=== PATIENT | female | born 1985 | race African-American/Black ===

== ENCOUNTER 2023-02-23 09:06 | Emergency (ER) | payer BC, SELFPAY ==
--- NOTE | ~2023-02-23 | XR_ITS ---
EXAMINATION: XR thoracic spine 3V DATE: 02/23/2023 09:52 INDICATION: Thoracic back pain. TECHNIQUE: 3 views of thoracic spine were obtained. COMPARISON: None. FINDINGS: There is 5 degrees dextrocurvature of cervicothoracic spine. There is 2 mm retrolisthesis o f C5 on C6. There is moderate cervical spondylosis. Vertebral body heights and intervertebral disc he ights are normal and thoracic spine. There are endplate osteophytes at most levels. There is multilev el mild facet joint osteoarthritis. IMPRESSION: 1. Mild thoracic spondylosis. 2. Moderate cervical spondylosis. Reviewed, dictated and finalized at location E. N LEADER
[2023-02-23 09:17] VITALS: BP 144/103; PULSE 90; RESP 14; TEMP 37.2; O2SAT 100
--- NOTE | 2023-02-23 09:47 | ED.GENADULT ---
HPI - General Adult General Chief complaint: Back Pain/Injury Stated complaint: Upper Back Pain Source: patient Mode of arrival: ambulatory Limitations: no limitations History of Present Illness HPI narrative: Patient presents for evaluation of back pain for the past five days. Pain is in the midline of upper thoracic spinal region. Pain is constant, with interval worsening. No recent injury. She thinks she slept on it wrong . She rates her pain currently as 10/10 in severity. She took Tylenol for her symptoms which seem to help. She has also been using a heating pad and applying icy hot, both of which help. LMP two days ago. She has not been sexually active since that time. Related Data Allergies Allergy/AdvReac Type Severity Reaction Status Date / Time No Known Allergies Allergy Unverified 03/27/12 19:50 Review of Systems Review of Systems: CONSTITUTIONAL: Denies fever, chills, or sweats. EYES: Denies visual changes, redness, or discharge. ENT: Denies rhinorrhea, congestion, sore throat, or otalgia. CARDIOVASCULAR: Denies chest pain, palpitations, or edema. RESPIRATORY: Denies cough or dyspnea. GASTROINTESTINAL: Denies abdominal pain, nausea, vomiting, or diarrhea. GENITOURINARY: Denies dysuria or hematuria. SKIN: Denies rash or itching. MUSCULOSKELETAL: Reports pain in upper back. Denies joint pain, or myalgia. NEUROLOGIC: Denies headache, numbness, dizziness, or weakness. PSYCHIATRIC: Denies anxiety or depression. [facility], [facility] Past Medical History Medical History (Updated 02/23/23 @ 10:12 by Dru Durham, CITY DETECTIVE, ) No pertinent past medical history Surgical History Surgical History No pertinent past surgical history Family History Family History Mother Family history non-contributory Social History Social History Smoking status: Never smoker Substance use: never Living arrangements: with family Gender identity (if verbalized by the patient): Female Spiritual care concerns: No Exam Narrative: GENERAL: Well-appearing, well-nourished, and in no acute distress. HEAD: Normocephalic, atraumatic. EYES: PERRLA and EOMI. ENT: Nares clear, no rhinorrhea or epistaxis. Mucous membranes moist. Oropharynx without tonsillar hypertrophy exudate or other lesions. Bilateral TMs pearly cooper nonbulging NECK: Supple. No adenopathy or masses. No carotid bruits or JVD CHEST: Clear to auscultation. No respiratory distress. No wheezes rales or rhonchi HEART: Regular rate and rhythm. No murmur heard. Normal peripheral pulses. ABDOMEN: Soft, nontender, nondistended, normal active bowel sounds. EXTREMITIES: Normal range of motion. No edema. BACK: Mild tenderness in midline of superior aspect of thoracic spine. No tenderness in neck. Pain is reproducible with flexion, extension and lateral rotation of the neck SKIN: Warm, dry, no rash. NEURO: No focal deficits. Alert and oriented x3. PSYCH: Normal mood and affect. Course Course Emergency Course: This is a 37-year-old female who presented for evaluation of back pain. X-ray showed spondylosis. Given Toradol while here. Continue warm moist heat and icy Hot. NSAIDs and flexeril for pain. Follow up with primary provider. Go to the ER for worsening symptoms. Pt in agreement with plan of care. Level of Care: Express Care Visit Vital Signs Vital signs: Vital Signs Temperature 37.2 C 02/23/23 09:17 Pulse Rate 90 02/23/23 09:17 Respiratory Rate 14 02/23/23 09:17 Blood Pressure 144/103 H 02/23/23 09:17 Pulse Oximetry 100 02/23/23 09:17 Oxygen Delivery Room Air 02/23/23 09:17 Temperature 37.2 C 02/23/23 09:17 Pulse Rate 90 02/23/23 09:17 Respiratory Rate 14 02/23/23 09:17 Blood Pressure 144/103 H 02/23/23 09:17 Pulse Oximetry 10
[2023-02-23] MEDS: KETOROLAC (*BKC) 60 MG/2 ML VIAL IM (09:53)
== END 2023-02-23 10:15 | disposition home or self-care (01) ==
PROVIDERS: Emergency Provider Nurse Practitioner
DX: M47.814 Spondylosis without myelopathy or radiculopathy, thoracic region (principal); M47.812 Spondylosis without myelopathy or radiculopathy, cervical region
CPT/HCPCS: 72072; 96372; 99213; G0463; J1885

== ENCOUNTER 2023-02-24 18:37 | Emergency (ER) | payer BC, SELFPAY ==
--- NOTE | ~2023-02-24 | CT_ITS ---
EXAMINATION: CT brain wo con DATE: 02/24/2023 19:55 INDICATION: Left-sided weakness TECHNIQUE: Computed tomography (CT) of the head was performed without intravenous contrast. Sagittal and coronal reconstructions were performed. The mA was adjusted according to patient size. Iterative reconstruction technique was employed. The dose-length product was 605.33 mGy-cm. COMPARISON: None FINDINGS: No acute intracranial hemorrhage, acute infarction or abnormal extra axial fluid collection. Ventricl es are normal and symmetric. No mass/mass effect. The orbits, paranasal sinuses and mastoid air cells are normal. IMPRESSION: 1. Normal head CT. Reviewed, dictated and finalized at location A. RCOATER IMPRESSION: 1. Normal head CT.
--- NOTE | ~2023-02-24 | CT_ITS ---
EXAMINATION: CT cervical spine wo con DATE: 02/24/2023 19:57 INDICATION: Left-sided weakness TECHNIQUE: Computed tomography (CT) of the cervical spine was performed without intravenous contrast. Automated exposure control and iterative reconstruction technique were employed. The dose-length pro duct was 517.64 mGy-cm. COMPARISON: None FINDINGS: 10 degrees cervicothoracic dextrocurvature. There is reversal of the normal cervical lordosis. No spo ndylolisthesis or facet subluxation. Vertebral body heights are normal. No fracture. Moderate disc he ight loss at C5-C6. Mild disc height loss at C4-C5 and C6-C7. Cervical soft tissues are unremarkable. Visualized apices of the lungs are clear. The following disc levels are specifically discussed: C2-C3: There is no uncovertebral joint osteoarthritis. There is mild right and mild to moderate left facet joint osteoarthritis. There is no neural foraminal stenosis. There is no central canal stenosis . C3-C4: There is mild bilateral uncovertebral joint osteoarthritis. There is minimal bilateral facet j oint osteoarthritis. There is no neural foraminal stenosis. There is no central canal stenosis. C4-C5: Disc is bulging. There is mild bilateral uncovertebral joint osteoarthritis. There is mild lef t and minimal right facet joint osteoarthritis. There is minimal left neural foraminal stenosis. Ther e is mild central canal stenosis. C5-C6: Posterior disc osteophyte complex. There is moderate bilateral uncovertebral joint osteoarthri tis. There is minimal bilateral facet joint osteoarthritis. There is mild bilateral neural foraminal stenosis. There is mild central canal stenosis. C6-C7: There is mild left uncovertebral joint osteoarthritis. There is mild bilateral facet joint ost eoarthritis. There is no neural foraminal stenosis. There is no central canal stenosis. C7-T1: There is minimal bilateral uncovertebral joint osteoarthritis. There is moderate bilateral fac et joint osteoarthritis. There is mild left neural foraminal stenosis. There is no central canal sten osis. IMPRESSION: 1. Moderate cervical spondylosis. No acute osseous abnormality. Reviewed, dictated and finalized at location A. LLURGICAL LAB TECHNICIAN
--- NOTE | ~2023-02-24 | CT_ITS ---
EXAMINATION: CT thoracic lumbar wo con DATE: 02/24/2023 20:02 INDICATION: Left-sided weakness and back pain TECHNIQUE: Computed tomography (CT) of the thoracic and lumbar spine was performed without intravenou s contrast. Automated exposure control and iterative reconstruction technique were employed. The dose -length product was 2009.60 mGy-cm. COMPARISON: Thoracic spine radiographs dated 02/23/2023 FINDINGS: Thoracic spine: Alignment is normal. Vertebral body heights are normal. No fracture. There is mild disc height loss a nd mild degenerative endplate changes from T3-T4 through T10-T11. No central canal stenosis. There is multilevel thoracic facet osteoarthritis, moderate to severe bilaterally at T2-T3 through T4-T5 with mild facet osteoarthritis bilaterally throughout the more caudal thoracic spine. There is moderate n eural foraminal stenosis bilaterally at T3-T4 and T4-T5 with mild neural foraminal stenosis bilateral ly at a few additional levels in the mid to upper thoracic spine. Visualized paravertebral soft tissu es are unremarkable. Visualized portion of the lungs are clear. Lumbar spine: Transitional L1 segment with bilateral hypoplastic riblets. There are 4 more caudal nonrib-bearing genesis mbar segments L2-L5. Lumbar vertebral body and disc heights are normal. There are disc bulges resulti ng in mild central canal stenosis at L3-L4, L4-L5 and L5-S1. There is bilateral mild facet osteoarthr itis at T12-L1, L1-L2 and L5-S1, mild to moderate facet osteoarthritis at L2-L3 and moderate facet os teoarthritis bilaterally at L3-L4 and L4-L5. Bilateral mild neural from stenosis throughout the lumba r spine. Visualized paravertebral soft tissues are unremarkable. Bilateral nonobstructing nephrolithi asis the largest stone at the lower pole of the left kidney measuring approximately 7 mm although richie surement is limited by some motion artifact. IMPRESSION: 1. Mild thoracic and lumbar spondylosis. No acute osseous abnormality. 2. Bilateral nonobstructing nephrolithiasis. Reviewed, dictated and finalized at location A. AND MACHINE MAINTAINER
[2023-02-24 18:40] VITALS: BP 180/99; PULSE 95; RESP 14; TEMP 36.7; O2SAT 100
--- NOTE | 2023-02-24 18:55 | ED.NEUROSD ---
HPI - Neuro Symptoms/Deficit General Chief Complaint: Neuro Symptoms/Deficit Stated Complaint: BACK PAIN, LEGS FEEL WEAK Time Seen by Provider: 02/24/23 18:45 Source: patient Mode of arrival: ambulatory Limitations: no limitations History of Present Illness HPI Narrative: This is a 37 year old female that presents to the ER for left sided weakness. Reports she was seen at urgent care yesterday for mid back pain. Had thoracic spine x-rays. She was sent with Ibuprofen and a muscle relaxer. Reports her pain has improved, but she felt like her left side was weak today. No recent injuries or trauma. Denies numbness. Related Data Allergies Allergy/AdvReac Type Severity Reaction Status Date / Time No Known Allergies Allergy Unverified 03/27/12 19:50 Review of Systems Review of Systems: CONSTITUTIONAL: Denies fever SKIN: Denies rash MUSCULOSKELETAL: Reports back pain, joint pain, and myalgia. NEUROLOGIC: Reports weakness. Denies numbness All systems reviewed & are unremarkable except as noted in HPI and below PMFSH Past Medical History Medical History (Updated 02/24/23 @ 21:15 by Mahogany Kaur PA-C) No pertinent past medical history Surgical History Surgical History No pertinent past surgical history Family History Family History Mother Family history non-contributory Social History Social History Smoking status: Never smoker Substance use: never Living arrangements: with family Gender identity (if verbalized by the patient): Female Spiritual care concerns: No Exam Narrative: GENERAL: Well-appearing, well-nourished, and in no acute distress. HEAD: Normocephalic, atraumatic. EYES: PERRLA and EOMI. ENT: Nares clear, no rhinorrhea or epistaxis. Mucous membranes moist. Oropharynx without tonsillar hypertrophy exudate or other lesions. Bilateral TMs pearly cooper non-bulging NECK: Supple. No adenopathy or masses. No JVD CHEST: Clear to auscultation. No respiratory distress. No wheezes rales or rhonchi HEART: Regular rate and rhythm. No murmur heard. Normal peripheral pulses. EXTREMITIES: Normal range of motion. No edema. Strength equal in bilateral upper and lower extremities (5/5). Normal DP pulses SKIN: Warm, dry, no rash. NEURO: No focal deficits. Alert and oriented x3. Cranial nerves II through XII grossly intact. Normal gait PSYCH: Normal mood and affect Course Course Emergency Course: Patient updated on work-up and agrees with plan of care Vital Signs Vital signs: Vital Signs Temperature 98.1 F 02/24/23 18:40 Pulse Rate 95 02/24/23 18:40 Respiratory Rate 14 02/24/23 18:40 Blood Pressure 180/99 H 02/24/23 18:40 Pulse Oximetry 100 02/24/23 18:40 Oxygen Delivery Room Air 02/24/23 18:40 Temperature 98.1 F 02/24/23 18:40 Pulse Rate 95 02/24/23 18:40 Respiratory Rate 14 02/24/23 18:40 Blood Pressure 180/99 H 02/24/23 18:40 Pulse Oximetry 100 02/24/23 18:40 Oxygen Delivery Room Air 02/24/23 18:40 MDM - Neuro Symptoms/Deficit MDM Narrative Medical decision making narrative: Patient presents to the emergency department for feelings of weakness. Reporting some mid back pain ongoing over the last couple of days. No known injury or trauma. She has no neurologic deficits on exam. Ambulates with a steady/normal gait. She is afebrile and nontoxic-appearing. CBC shows microcytic anemia with hemoglobin of 8.5. Metabolic panel without concerning findings. CT scan of the brain is without acute findings. CT scans of the cervical, thoracic, and lumbar spine show overall mild to moderate spondylosis. No acute findings. Patient was updated on workup. Instructed to have close follow up with PCP for further management. Suspect her anemia may be contributing to symptoms. She does
[2023-02-24 19:20] LABS: Basophils Percent Auto 0.5 % (0.2-1.2); Eosinophils Absolute Auto 0.3 K/mm3 (0-0.3); Eosinophils Percent Auto 3.9 % (0-4.4); Hematocrit 28.4 % (37.0-47.0); Hemoglobin 8.5 g/dL (12.0-15.0); Immature Granulocyte Absolute 0.01 K/mm3 (0.00-0.031); Immature Granulocyte Percent A 0.2 % (0-0.5); Lymphocytes Absolute Auto 2.74 K/mm3 (0.9-3.2); Lymphocytes Percent Auto 43.1 % (18.3-44.2); Mean Corpuscular HGB Conc 29.9 g/dl (32-36); Mean Corpuscular Hemoglobin 23.7 pg (26-34); Mean Corpuscular Volume 79.3 fl (80-100); Mean Platelet Volume 8.8 fl (7.4-10.4); Monocytes Absolute Auto 0.5 K/mm3 (0.1-0.6); Monocytes Percent Auto 7.4 % (2.6-8.5); Neutrophils Absolute Auto 2.9 K/mm3 (1.3-6.7); Neutrophils Percent Auto 44.9 % (45.5-73.1); Platelet Count Result 335 k/mm3 (150-375); Red Blood Count 3.58 M/mm3 (4.2-5.4); White Blood Count 6.4 K/mm3 (4.5-10.0)
[2023-02-24 19:30] LABS: Alanine Aminotransferase 14 U/L (6-35); Albumin Level 4.2 g/dL (3.5-5.1); Alkaline Phosphatase 61 U/L (38-126); Anion Gap 11 mmol/L (8-16); Aspartate Amino Transferase 24 U/L (14-36); Bilirubin,Total 0.4 mg/dL (0.2-1.3); Blood Urea Nitrogen 10 mg/dL (7-17); Calcium 9.1 mg/dL (8.4-10.2); Carbon Dioxide 24 mmol/L (22-30); Chloride 103 mmol/L (98-107); Estimated CRCL calculation 124 ml/min; Estimated Glomerular Filt Rate > 60; Glucose 90 mg/dL (65-110); Potassium 3.9 mmol/L (3.4-5.0); Sodium 138 mmol/L (137-145)
[2023-02-24 20:07] LABS: Platelet Estimate Adequate (Adequate)
[2023-02-24 20:08] LABS: Hypochromasia 1+ (NORMAL); Schistocytes None Seen (NORMAL)
[2023-02-24 20:09] LABS: Anisocytosis 2+ (NORMAL)
[2023-02-24 21:34] VITALS: BP 127/81; PULSE 68; RESP 15; O2SAT 100
== END 2023-02-24 21:36 | disposition home or self-care (01) ==
PROVIDERS: Emergency Provider Physician Assistant
DX: D64.9 Anemia, unspecified (principal); M54.6 Pain in thoracic spine; M47.812 Spondylosis without myelopathy or radiculopathy, cervical region; M47.816 Spondylosis without myelopathy or radiculopathy, lumbar region; M47.814 Spondylosis without myelopathy or radiculopathy, thoracic region
CPT/HCPCS: 36415; 70450; 72125; 72128; 72131; 80053; 85025; 99284

== ENCOUNTER 2023-02-26 16:39 | Emergency (ER) | payer BC, SELFPAY ==
[2023-02-26 16:49] VITALS: BP 149/82; PULSE 87; RESP 16; TEMP 36.4; O2SAT 100
--- NOTE | 2023-02-26 17:15 | ED.GENADULT ---
HPI - General Adult General Chief complaint: Unspecified Stated complaint: Left Leg and Hand Weakness Time Seen by Provider: 02/26/23 17:07 Source: patient and RN notes reviewed Mode of arrival: ambulatory Limitations: no limitations History of Present Illness HPI narrative: Patient presents today complaining of weakness in her left hand and left leg that started 2 days ago. She was seen at the [facility] 3 days ago for back pain and given prescription for ibuprofen and Flexeril. Two days ago she was seen in the ER for weakness of her left side. She had a full workup to include CTs of her head and back as well as lab work, which came to find her anemic. She was told to follow-up with PCP as her anemia may be contributing to her weakness symptoms. Patient presents today with this continuing weakness and back pain stating she called 1 PCPs office and because they could not get her in that same day, she came to urgent care. Her weakness symptoms have not changed, but her back pain is currently a 0/10, as she is taking the ibuprofen and Flexeril. Related Data Allergies Allergy/AdvReac Type Severity Reaction Status Date / Time No Known Allergies Allergy Verified 02/26/23 17:02 Review of Systems Review of Systems: CONSTITUTIONAL: Denies body aches, fever, chills, or sweats. EYES: Denies visual changes, redness, or discharge. ENT: Denies rhinorrhea, congestion, sore throat, or otalgia. CARDIOVASCULAR: Denies chest pain, palpitations, or edema. RESPIRATORY: Denies cough or dyspnea. GASTROINTESTINAL: Denies abdominal pain, nausea, vomiting, or diarrhea. GENITOURINARY: Denies dysuria or hematuria. SKIN: Denies rash, itching, or wounds. MUSCULOSKELETAL: Denies joint pain, or myalgia.+ back pain NEUROLOGIC: Denies headache, numbness, tingling. + weakness to left hand and leg PSYCH: Denies depression or anxiety. [facility] Past Medical History Medical History No pertinent past medical history Surgical History Surgical History No pertinent past surgical history Family History Family History Mother Family history non-contributory Social History Social History Smoking status: Never smoker Substance use: never Living arrangements: with family Gender identity (if verbalized by the patient): Female Spiritual care concerns: No Comments At time of signature, I have reviewed and agree with nursing past medical, surgical, social and family history unless otherwise noted. Please see nursing chart for further information. There is no relevant family history pertinent to the presenting complaint Exam Narrative: GENERAL: Well-appearing, well-nourished, and in no acute distress. HEAD: Normocephalic, atraumatic. EYES: EOMI. No redness or drainage. ENT: Mucous membranes pink and moist. NECK: Normal AROM. CHEST: No respiratory distress. Clear to auscultation. HEART: Regular rate and rhythm. No murmur appreciated. Normal peripheral pulses. ABDOMEN: Soft, nontender, nondistended, normal active bowel sounds. MUSCULOSKELETAL: No bony tenderness of the spine. No paraspinal muscle tenderness at this time. Distal sensation intact. Saddle sensation intact. Dorsiflexion and plantar flexion equal and strong against resistance. Hand universal winding machine operator equal and strong. No weakness appreciated. EXTREMITIES: Normal range of motion. No edema. SKIN: Warm, dry, no rash. Capillary refill normal. Normal skin turgor. NEURO: No focal deficits. Alert and oriented x3. Gait steady. PSYCH: Normal affect. No signs of depression or anxiety. Course Course Level of Care: Express Care Visit Vital Signs Vital signs: Vital Signs Temperature 97.6 F 02/26/23 16:49 Pulse Rate 87 02/26/23 16:49 Res
== END 2023-02-26 17:27 | disposition home or self-care (01) ==
PROVIDERS: Emergency Provider Nurse Practitioner
DX: M54.50 Low back pain, unspecified (principal); Z79.899 Other long term (current) drug therapy; Z79.1 Long term (current) use of non-steroidal anti-inflammatories (NSAID)
CPT/HCPCS: 99211; G0463

== ENCOUNTER 2023-03-24 14:31 | Outpatient (CLI) | payer BC, SELFPAY ==
[2023-03-24 14:44] LABS: Basophils Percent Auto 0.6 % (0.2-1.2); Eosinophils Absolute Auto 0.1 K/mm3 (0-0.3); Eosinophils Percent Auto 2.5 % (0-4.4); Hematocrit 34.3 % (37.0-47.0); Hemoglobin 10.8 g/dL (12.0-15.0); Immature Granulocyte Absolute 0.01 K/mm3 (0.00-0.031); Immature Granulocyte Percent A 0.2 % (0-0.5); Lymphocytes Absolute Auto 1.91 K/mm3 (0.9-3.2); Lymphocytes Percent Auto 37.2 % (18.3-44.2); Mean Corpuscular HGB Conc 31.5 g/dl (32-36); Mean Corpuscular Volume 85.8 fl (80-100); Monocytes Absolute Auto 0.3 K/mm3 (0.1-0.6); Monocytes Percent Auto 6.4 % (2.6-8.5); Neutrophils Absolute Auto 2.7 K/mm3 (1.3-6.7); Neutrophils Percent Auto 53.1 % (45.5-73.1); Platelet Count Result 304 k/mm3 (150-375); Red Cell Distribution Width 23.1 % (11.5-14.5); White Blood Count 5.1 K/mm3 (4.5-10.0)
[2023-03-24 16:30] LABS: Alanine Aminotransferase 27 U/L (6-35); Albumin Level 4.2 g/dL (3.5-5.1); Alkaline Phosphatase 76 U/L (38-126); Anion Gap 8 mmol/L (8-16); Aspartate Amino Transferase 36 U/L (14-36); Bilirubin,Total 0.6 mg/dL (0.2-1.3); Blood Urea Nitrogen 5 mg/dL (7-17); Calcium 9.3 mg/dL (8.4-10.2); Carbon Dioxide 24 mmol/L (22-30); Chloride 106 mmol/L (98-107); Estimated Glomerular Filt Rate > 60; Glucose 87 mg/dL (65-110); Potassium 3.9 mmol/L (3.4-5.0); Sodium 138 mmol/L (137-145)
[2023-03-24 18:29] LABS: Iron 358 ug/dL (37-170)
[2023-03-24 18:38] LABS: Percent Iron Saturation 104 % (20-50)
[2023-03-27 15:07] LABS: Methylmalonic Acid 95 nmol/L (87-318)
[2023-03-28 11:15] LABS: Soluble Transferrin Receptor 2.28 mg/L (0.76-1.76)
== END 2023-03-24 14:32 | disposition home or self-care (01) ==
PROVIDERS: Visit Provider Internal Medicine Hematology & Oncology
DX: D64.9 Anemia, unspecified (principal)
CPT/HCPCS: 36415; 80053; 82728; 83540; 83550; 83921; 84238; 85025